=== PATIENT | male | born 1960 | race Caucasian/White ===

== ENCOUNTER → 2018-05-29 | Outpatient (CLI) | payer BC, OTHER | LOC: MRI 07:18 | DX: M25.411 Effusion, right shoulder (principal); M75.51 Bursitis of right shoulder; M25.512 Pain in left shoulder ==

== ENCOUNTER → 2019-05-03 | Outpatient (CLI) | payer BC, OTHER | LOC: RAD 08:29 | DX: Z47.1 Aftercare following joint replacement surgery (principal); Z96.641 Presence of right artificial hip joint ==